=== PATIENT | female | born 1995 | race Hispanic/Latino ===

== ENCOUNTER 2019-05-06 18:47 | Inpatient (IN) | payer OTHER | END 2019-05-09 15:30 | disposition home or self-care (01) | LOC: EDH 18:47 → WSH 05-07 00:20 → EDHIP 18:48 ==

== ENCOUNTER 2019-05-24 11:43 | Emergency (ER) | payer OTHER ==
[~2019-05-24 11:43] MED LIST: ACET1TAB12 PO
[2019-05-24] MEDS ORDERED: CEFTRIAXONE SODIUM 1 GM ONE (12:36)
[2019-05-24] MEDS ORDERED: SODIUM CHLORIDE 0.9% 1000ML 1,000 ML IV ONE (12:36)
[2019-05-24 12:41] LABS: BASOPHILS % (AUTO) 0.6 % (0.0-5.0); EOSINOPHILS % (AUTO) 5.2 % (0.0-8.0); HEMATOCRIT 39.8 % (36-48); MEAN CORPUSCULAR HEMOGLOBIN 30.3 pg (27.0-33.0); MEAN CORPUSCULAR HGB CONC 33.8 g/dL (32.0-36.0); MEAN CORPUSCULAR VOLUME 89.5 fL (79-99); MONOCYTES % (AUTO) 7.7 % (3.0-13.0); NEUTROPHILS % (AUTO) 61.5 % (40.0-77.0); PLATELET COUNT (AUTO) 246 K/uL (130-400); RED BLOOD CELL COUNT(AUTO) 4.45 MIL/uL (4.00-5.50); RED CELL DISTRIBUTION WIDTH 12.6 % (11.0-15.5); WHITE BLOOD COUNT (AUTO) 6.8 K/uL (4.8-10.8)
[2019-05-24 12:47] LABS: CREATININE 0.7 mg/dL (0.5-1.5)
[2019-05-24] MEDS ORDERED: IOHEXOL-350 75 ML VIAL IV ONE (13:10)
== END 2019-05-24 14:48 | disposition home or self-care (01) ==
LOC: EDH 11:43
DX: T81.49XA Infection following a procedure, other surgical site, initial encounter (principal); Z98.890 Other specified postprocedural states; Z90.49 Acquired absence of other specified parts of digestive tract
CPT/HCPCS: 36415; 74177; 80048; 81025; 85025; 96374; 99285; J0696; J7030; Q9967